=== PATIENT | male | born 1995 | race Caucasian/White ===

== ENCOUNTER 2016-11-22 20:42 | Inpatient (IN) | payer BC, OTHER ==
--- NOTE | 2016-11-22 21:20 | ED ---
Phoenix Brunner Benjamin, scribed for Eliot Castaneda MD on 11/22/16 at 2106 . Psychiatric Complaint - HPI Summary HPI Summary: 21yo male BIB police as 941. Per police, pt had a mental breakdown earlier today when his parents were arguing. Pt made suicidal and homicidal statements towards his parents. Pt has calmed down now and has been non violent and cooperative to police. Pt states his heart is broken and also states feeling depressed. Pt hasnt taken his psych meds for 3 weeks now. Denies any drug or alcohol use today. - History Of Current Complaint Chief Complaint: EDMentalHealth Time Seen by Provider: 11/22/16 20:52 Hx Obtained From: Patient, Other: - police Onset/Duration: Sudden Onset, Lasting Hours, Still Present Timing: Constant Severity Initially: Mild Severity Currently: Mild Character: Depressed Aggravating Factor(s): Recent Stress Alleviating Factor(s): Nothing Associated Signs And Symptoms: Positive: Negative Has Suicidal: Reports: Thoughts Has Homicidal: Reports: Thoughts - Allergies/Home Medications Allergies/Adverse Reactions: Allergies Allergy/AdvReac Type Severity Reaction Status Date / Time Perfume [Fragrance] Allergy SKIN Verified 02/28/15 06:30 SENSITIVITY PMH/Surg Hx/FS Hx/Imm Hx Endocrine/Hematology History: Denies: Hx Diabetes Respiratory History: Reports: Other Respiratory Problems/Disorders - OCCASIONAL NERVOUS COUGH, OR CLEARING OF THROAT-WHEN GETS NERVOUS GI History: Reports: Hx Gastroesophageal Reflux Disease - ACID REFLUX ON PEPCID COMPLETE Sensory History: Reports: Hx Contacts or Glasses - instructed glasses day of SURGERY Denies: Hx Hearing Aid Opthamlomology History: Reports: Hx Contacts or Glasses - instructed glasses day of SURGERY Neurological History: Reports: Other Neuro Impairments/Disorders - DOES HAVE SOME TIC- CLEARING HIS THROAT- PER MOM Psychiatric History: Reports: Hx Anxiety - BIPOLAR, OCD, ANXIETY - Surgical History Surgery Procedure, Year, and Place: 1999 frenulectomy [facility]. 2010 dental ext of[facility]. 2012 LASER REMOVED OF PLANTAR WART. 2014- PILONIDAL CYST- [facility] [place] Hx Anesthesia Reactions: Yes - THROAT SPASM UNDER ANESTHESIA-2014 - Immunization History Date of Tetanus Vaccine: unk Date of Influenza Vaccine: unk Infectious Disease History: No Infectious Disease History: Denies: Traveled Outside the [place] in Last 30 Days - Family History Known Family History: Positive: Other - psychiatric disorders - Social History Occupation: Employed Full-time Lives: With Family Alcohol Use: Occasionally Substance Use Type: Reports: None Smoking Status (MU): Never Smoked Tobacco Review of Systems Constitutional: Negative Eyes: Negative ENT: Negative Cardiovascular: Negative Respiratory: Negative Gastrointestinal: Negative Genitourinary: Negative Musculoskeletal: Negative Skin: Negative Neurological: Negative Positive: Depressed All Other Systems Reviewed And Are Negative: Yes Physical Exam Triage Information Reviewed: Yes Vital Signs On Initial Exam: Initial Vitals Temp Pulse Resp BP Pulse Ox 97.8 F 129 20 98/63 96 11/22/16 20:52 11/22/16 20:52 11/22/16 20:52 11/22/16 20:52 11/22/16 20:52 Vital Signs Reviewed: Yes Appearance: Positive: Well-Appearing, No Pain Distress, Well-Nourished Skin: Positive: Warm, Skin Color Reflects Adequate Perfusion, Dry Head/Face: Positive: Normal Head/Face Inspection Eyes: Positive: EOMI, NATALY ENT: Positive: Normal ENT inspection, Hearing grossly normal Neck: Positive: Supple, Nontender Respiratory/Lung Sounds: Positive: Clear to Auscultation, Breath Sounds Present Cardiovascular: Positive: RRR, Pulses are Symmetrical in both Upper and Lower Extremities Abdomen Description: Positive: Nontender, Soft Bowel Sounds: Positive: Present Musculoskeletal: Positive: Strength/ROM Intact Neurological: Positive: Sensory/Motor Intact, Alert, Oriented to Person Place, Time Psychiatric: Positive: Other - tearful - [place] Coma Scale Coma Scale Total: 15 Diagnostics - Vital Signs Vital Signs Temp Pulse Resp BP Pulse Ox 11/22/16 20:52 97.8 F 129 20 98/63 96 - Laboratory Lab Statement: Any lab studies that have been ordered have been reviewed, and results considered in the medical decision making process. Course/Dx - Course Course Of Treatment: Reviewed pts medication and allergy lists. Blood pressure noted. MHE PENDING AT SHIFT CHANGE. - Differential Dx/Clinical Impression Provider Diagnosis: Mental health problem Discharge - Discharge Plan Condition: Stable Disposition: OTHER Discharge Disposition Comment: . Referrals: Veto Galvan MD [Primary Care Provider] - The documentation as recorded by the Phoenix alba Benjamin accurately reflects the service I personally performed and the decisions made by me, Eliot Castaneda MD.
[2016-11-22 21:32] LABS: Urine Bilirubin Negative (Negative); Urine Glucose Negative (Negative); Urine Nitrite Negative (Negative)
[2016-11-22 21:41] LABS: Hematocrit 44 % (42-52); Hemoglobin 15.1 g/dl (14.0-18.0); Mean Corpuscular HGB Conc 35 g/dl (31-36); Mean Corpuscular Hemoglobin 30 pg (27-31); Mean Corpuscular Volume 85 fL (80-94); Mean Platelet Volume 9 um3 (7.4-10.4); Red Blood Count 5.11 10^6/ul (4.0-5.4); Red Cell Distribution Width 13 % (10.5-15); White Blood Count 8.8 10^3/ul (3.5-10.8)
[2016-11-22 21:54] LABS: Benzodiazepine Urine Screen None Detected (None Detect)
[2016-11-22 21:55] LABS: ALT 33 U/L (7-52); AST 44 U/L (13-39); Albumin 4.5 g/dL (3.2-5.2); Alkaline Phosphatase 105 U/L (34-104); Anion Gap 10 mmol/L (2-11); BUN/Creatinine Ratio 12.3 (8-20); Blood Urea Nitrogen 15 mg/dL (6-24); CO2 Carbon Dioxide 23 mmol/L (22-32); Calcium 9.7 mg/dL (8.6-10.3); Chloride 104 mmol/L (101-111); EGFR African American 96.4 (>60); Globulin 2.6 g/dL (2-4); Glucose 102 mg/dL (70-100); Potassium 3.9 mmol/L (3.5-5.0); Sodium 137 mmol/L (133-145); Total Protein 7.1 g/dL (6.4-8.9)
[2016-11-22 21:57] LABS: Acetaminophen < 15 mcg/mL; Alcohol < 10 mg/dL (<10); Salicylate < 2.50 mg/dL (<30)
[2016-11-22 22:04] LABS: TSH (Thyroid Stimulating Horm) 0.94 mcIU/mL (0.34-5.60)
[2016-11-23] MEDS ORDERED: Al Hydrox/Mg Hydrox/Simet LIQ* 30 ML UDC PO PRN (05:33)
[2016-11-23] MEDS ORDERED: Acetaminophen TAB* 325 MG PO PRN (05:33)
[2016-11-23] MEDS ORDERED: Haloperidol TAB* 5 MG PO PRN (05:33)
--- NOTE | 2016-11-23 07:16 | ED ---
Oziel Brunner Rebecca, scribed for Randy Chavez MD on 11/23/16 at 0258 . Progress - Progress Note Progress Note: Pt was signed out from Dr. Castaneda, pending disposition, awaiting MHE. Course/Dx - Course Course Of Treatment: Pt was signed out from Dr. Castaneda, pending disposition, awaiting MHE. Upon completion of MHE and consultation with Dr. Colón, it has been determined that the pt will be admitted to [facility] as an involuntary admission with Dx of psychoses. Pt is stable and she understands and agrees. - Diagnoses Provider Diagnoses: Psychoses The documentation as recorded by the Oziel alba Rebecca accurately reflects the service I personally performed and the decisions made by , Randy Chavez MD.
[2016-11-23] MEDS: Vitamin THERAPEUTIC TAB PO SCH (08:45)
[2016-11-23] MEDS: guanFACINE TAB* 1 MG PO SCH (20:36)
[2016-11-23] MEDS: OLANzapine TAB* 5 MG PO SCH (20:36)
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
[2016-11-24] MEDS: Vitamin THERAPEUTIC TAB PO SCH (10:29)
[2016-11-24] MEDS: OLANzapine TAB* 5 MG PO SCH (20:59)
[2016-11-24] MEDS: guanFACINE TAB* 1 MG PO SCH (20:59)
[2016-11-25] MEDS: Vitamin THERAPEUTIC TAB PO SCH (13:25)
--- NOTE | 2016-11-25 18:12 | PN ---
Subjective - Subjective Service Type: 74503 Hosp care 15 min low complexity Subjective: Martin was examined in the dinning room. He appeared happy and reports that he was doing just fine. Getting along with specific peers. Denies mood, thoughts or perceptual problems. Says he wasn't happy to see his parents who came to visit him. Got quiet when asked about his feeling towards then. Just shrugged his shoulders. Vehimently unwilling to consider any meds. Objective - Appearance Appearance: Obese Dysmorphic Features: No Hygiene: Normal Grooming: Well Kept - Behavior Psychomotor Activities: Normal Exhibits Abnormal Movement: No - Attitude and Relatedness Attitude and Relatedness: Well Related Eye Contact: Fair - Speech Quality: Unpressured Latencies: Normal Quantity: Appropriate - Mood Patient's Decription of Mood: "Good" - Affect Affect Consistent with: Euthymia - Thought Process Patient's Thought Process: Coherent, Goal Directed Thought Content: No Passive Wish, No Suicidal Planning, No Homicidal Ideation, No Paranoid Ideation - Sensorium Experiencing Hallucinations: No, Sensorium is Clear Type of Hallucinations: Visual: No, Auditory: No, Command: No - Level of Consciousness Level of Consciousness: Alert Orientation: Yes Intact, Yes Orientated to Time, Yes Orientated to Place, Yes Orientated to Person - Impulse Control Impulse Control: Tenuous - Insight and Judgement Insight and Judgement: Poor - Group Participation Particating in Group Activities: No - Medication Management Medication Management Adherence: No Assessment - Assessment Merits Inpatient Hospitalization: To Initiate Treatment Plan - Plan Treatment Plan: Name: MARTIN GERARDO Birthdate: 1995 [id number] Continued Medication Management: Consider Medication Medications: Current Medications Acetaminophen (Tylenol Tab*) 650 mg PO Q4H PRN PRN Reason: PAIN or TEMP > 101 F Al Hydrox/Mg Hydrox/Simethicone (Maalox Plus*) 30 ml PO Q4H PRN PRN Reason: INDIGESTION Guanfacine HCl (Tenex Tab*) 1 mg PO BEDTIME [facility] Last Admin: 11/24/16 20:59 Dose: Not Given Haloperidol (Haldol Tab*) 5 mg PO Q6H PRN PRN Reason: ANXIETY/INSOMNIA/AGITATION Multivitamins (Theragran Tab*) 1 tab PO DAILY [facility] Last Admin: 11/25/16 13:25 Dose: Not Given Olanzapine (Zyprexa Tab*) 17.5 mg PO BEDTIME [facility] Last Admin: 11/24/16 20:59 Dose: Not Given - Discharge Plan Discharge Plan: Outpatient [facility]
[2016-11-25] MEDS: OLANzapine TAB* 5 MG PO SCH (21:25)
[2016-11-25] MEDS: guanFACINE TAB* 1 MG PO SCH (21:25)
[2016-11-26] MEDS: Vitamin THERAPEUTIC TAB PO SCH (09:58)
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
[2016-11-26] MEDS: guanFACINE TAB* 1 MG PO SCH (21:27)
[2016-11-26] MEDS: OLANzapine TAB* 5 MG PO SCH (21:27)
[2016-11-27] MEDS: Vitamin THERAPEUTIC TAB PO SCH (11:35)
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
[2016-11-27] MEDS: OLANzapine TAB* 5 MG PO SCH (21:43)
[2016-11-27] MEDS: guanFACINE TAB* 1 MG PO SCH (21:43)
[2016-11-28] MEDS: Vitamin THERAPEUTIC TAB PO SCH (09:15)
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
--- NOTE | 2016-11-28 16:20 | PN ---
[facility]: Group Therapy Note - Service Type Service Type: [id number] Group Psychotherapy - Medication Education Group: Patient was attentive and participatory in group, and remained in good behavioral control. Patient expressed positive insights regarding relevant treatment interventions. Patient stated understanding of material discussed and had appropriate questions.
[2016-11-28] MEDS: OLANzapine TAB* 5 MG PO SCH (20:04)
[2016-11-28] MEDS: guanFACINE TAB* 1 MG PO SCH (20:04)
[2016-11-29] MEDS: Vitamin THERAPEUTIC TAB PO SCH (12:52)
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
[2016-11-29] MEDS: guanFACINE TAB* 1 MG PO SCH (20:18)
[2016-11-29] MEDS: OLANzapine TAB* 5 MG PO SCH (20:18)
[2016-11-30] MEDS: Vitamin THERAPEUTIC TAB PO SCH (08:08)
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
[2016-11-30] MEDS: OLANzapine TAB* 5 MG PO SCH (21:15)
[2016-11-30] MEDS: guanFACINE TAB* 1 MG PO SCH (21:15)
[2016-12-01] MEDS: Vitamin THERAPEUTIC TAB PO SCH (10:44)
[2016-12-01] MEDS: guanFACINE TAB* 1 MG PO SCH (20:59)
[2016-12-01] MEDS: OLANzapine TAB* 5 MG PO SCH (20:59)
[2016-12-02] MEDS: Vitamin THERAPEUTIC TAB PO SCH (09:34)
[2016-12-02] MEDS: guanFACINE TAB* 1 MG PO SCH (20:21)
[2016-12-02] MEDS: OLANzapine TAB* 5 MG PO SCH (20:21)
[2016-12-03] MEDS: Vitamin THERAPEUTIC TAB PO SCH (09:25)
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
[2016-12-03] MEDS: guanFACINE TAB* 1 MG PO SCH (19:58)
[2016-12-03] MEDS: OLANzapine TAB* 5 MG PO SCH (19:58)
[2016-12-04] MEDS: Vitamin THERAPEUTIC TAB PO SCH (08:13)
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
[2016-12-04] MEDS: guanFACINE TAB* 1 MG PO SCH (21:22)
[2016-12-04] MEDS: OLANzapine TAB* 5 MG PO SCH (21:22)
[2016-12-05 09:51] LABS: HDL Cholesterol 36.4 mg/dL
[2016-12-05] MEDS: Vitamin THERAPEUTIC TAB PO SCH (10:59)
[2016-12-05] MEDS: Paliperidone TAB* 3 MG TAB PO SCH (14:10)
[2016-12-05] MEDS: Lithium Carbonate ER* 450 MG TAB.ER PO SCH (14:10)
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
[2016-12-05] MEDS: OLANzapine TAB* 5 MG PO SCH (22:01)
[2016-12-05] MEDS: guanFACINE TAB* 1 MG PO SCH (22:01)
[2016-12-06] MEDS: Lithium Carbonate ER* 450 MG TAB.ER PO SCH (10:25)
[2016-12-06] MEDS: Paliperidone TAB* 3 MG TAB PO SCH (10:25)
[2016-12-06] MEDS: Vitamin THERAPEUTIC TAB PO SCH (10:26)
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
[2016-12-07] MEDS: Paliperidone TAB* 3 MG TAB PO SCH (08:07)
[2016-12-07] MEDS: Lithium Carbonate ER* 450 MG TAB.ER PO SCH (08:07)
[2016-12-07] MEDS: Vitamin THERAPEUTIC TAB PO SCH (08:08)
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
--- NOTE | 2016-12-07 14:00 | PN ---
[facility]: Group Therapy Note - Service Type Service Type: 08977 Group Psychotherapy - Cognitive Behavioral Group Therapy ( CBT):Patient presented in CBT programming as disorganized and disruptive in discussion and needed repeated redirection to attend to presented materials.
[2016-12-08] MEDS: Paliperidone TAB* 3 MG TAB PO SCH (09:57)
[2016-12-08] MEDS: Lithium Carbonate ER* 450 MG TAB.ER PO SCH (09:57)
[2016-12-08] MEDS: Vitamin THERAPEUTIC TAB PO SCH (09:58)
[2016-12-09] MEDS: Lithium Carbonate ER* 450 MG TAB.ER PO SCH (09:15)
[2016-12-09] MEDS: Paliperidone TAB* 3 MG TAB PO SCH (09:15)
[2016-12-09] MEDS: Vitamin THERAPEUTIC TAB PO SCH (09:15)
[2016-12-10] MEDS: Vitamin THERAPEUTIC TAB PO SCH (09:33)
[2016-12-10] MEDS: Lithium Carbonate ER* 450 MG TAB.ER PO SCH ×2 (09:34→20:30)
[2016-12-10] MEDS: Paliperidone TAB* 3 MG TAB PO SCH (09:34)
[2016-12-10] MEDS ORDERED: Paliperidone SUSTENNA* 234 MG/1.5 ML IM ONE (12:35)
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
[2016-12-10] MEDS: Aspirin TAB* 325 MG PO PRN (13:19)
[2016-12-11] MEDS: Lithium Carbonate ER* 450 MG TAB.ER PO SCH ×2 (08:11→20:27)
[2016-12-11] MEDS: Aspirin TAB* 325 MG PO PRN ×2 (08:12→20:27)
[2016-12-11] MEDS: Vitamin THERAPEUTIC TAB PO SCH (08:13)
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
[2016-12-12] MEDS: Vitamin THERAPEUTIC TAB PO SCH (08:40)
[2016-12-12] MEDS: Aspirin TAB* 325 MG PO PRN ×2 (08:40→20:23)
[2016-12-12] MEDS: Lithium Carbonate ER* 450 MG TAB.ER PO SCH ×2 (08:40→20:23)
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
[2016-12-13] MEDS: Lithium Carbonate ER* 450 MG TAB.ER PO SCH ×2 (09:27→20:15)
[2016-12-13] MEDS: Aspirin TAB* 325 MG PO PRN ×2 (09:27→20:15)
[2016-12-13] MEDS: Vitamin THERAPEUTIC TAB PO SCH (09:28)
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
[2016-12-14] MEDS ORDERED: Paliperidone SUSTENNA* 156 MG/1 ML IM ONE (09:00)
[2016-12-14] MEDS: Lithium Carbonate ER* 450 MG TAB.ER PO SCH (10:04)
[2016-12-14] MEDS: Vitamin THERAPEUTIC TAB PO SCH (10:04)
[2016-12-14] MEDS: Aspirin TAB* 325 MG PO PRN (10:23)
[2016-12-14 13:52] VITALS: BP 114/61
[2016-12-14] MEDS ORDERED: Lithium Carbonate ER* 450 MG TAB.ER PO SCH ×2 (21:00)
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
[2016-12-15] MEDS ORDERED: Lithium Carbonate ER* 450 MG TAB.ER PO SCH (09:00)
== END 2016-12-14 13:25 | disposition home or self-care (01) | DRG 885 ==
LOC: ED 20:42 → BSU 11-23 05:11
PROVIDERS: ADMIT Psychiatry & Neurology Psychiatry; ATTEND Psychiatry & Neurology Psychiatry
PROC: GZHZZZZ Group Psychotherapy (ICD-10-PCS; principal; 2016-11-28)
DX: F31.2 Bipolar disorder, current episode manic severe with psychotic features (principal); F79 Unspecified intellectual disabilities; E66.9 Obesity, unspecified; F41.9 Anxiety disorder, unspecified; R40.2412 Glasgow coma scale score 13-15, at arrival to emergency department; R45.6 Violent behavior; K21.9 Gastro-esophageal reflux disease without esophagitis; F29 Unspecified psychosis not due to a substance or known physiological condition; F42.9 Obsessive-compulsive disorder, unspecified; Z88.4 Allergy status to anesthetic agent; Z81.8 Family history of other mental and behavioral disorders; Z72.89 Other problems related to lifestyle; Z91.14 Patient's other noncompliance with medication regimen; Z91.048 Other nonmedicinal substance allergy status; Z68.26 Body mass index [BMI] 26.0-26.9, adult
CPT/HCPCS: 36415; 80053; 80061; 80178; 80307; 80320; 80329; 81003; 83036; 84443; 85025; 90853; 99222; 99231; 99238; A9270-GY; G0480; J2426

== ENCOUNTER 2017-06-15 18:46 | Emergency (ER) | payer OTHER ==
[2017-06-15 19:00] VITALS: BP 151/79
--- NOTE | 2017-06-15 19:14 | UC ---
Lower Extremity/Ankle HPI - HPI Summary HPI Summary: Pt presents with b/l LE edema. He is accompanied by his mother who provides most of the history as pt suffers from mental illness. Mom tells me that pt started Depakote early April - since that time has been complaining of LE discomfort and b/l knee pain. He saw his PCP 06/03 and was told he was gaining too much weight and this could be the cause of his symptoms. Today pt presents with significant LE b/l edema and pressure. Denies fever, chills, SOB, chest pain, abdominal pain, n/v/d/c, or recent illness. - History of Current Complaint Chief Complaint: UCLowerExtremity Stated Complaint: EDEMA/SWELLING LEGS (BOTH) Time Seen by Provider: 06/15/17 19:14 Hx Obtained From: Patient, Family/Nutrition And Dietetics Instructor Severity Initially: Mild Severity Currently: Mild Pain Intensity: 2 Pain Scale Used: 0-10 Numeric Aggravating Factor(s): Standing, Ambulation Able to Bear Weight: Yes - Allergies/Home Medications Allergies/Adverse Reactions: Allergies Allergy/AdvReac Type Severity Reaction Status Date / Time No Known Allergies Allergy Verified 06/15/17 19:01 Home Medications: Home Medications Divalproex ER TAB(*) [Depakote ER TAB(*)] 750 mg PO DAILY 06/15/17 [History Confirmed 06/15/17] PMH/Surg Hx/FS Hx/Imm Hx Psychological History: Anxiety, Depression, Bipolar Disorder - Surgical History Surgical History: Yes Surgery Procedure, Year, and Place: 1999 frenulectomy [facility] – [place]. 2010 dental ext ofc. 2012 LASER REMOVED OF PLANTAR WART. 2013- [facility]ILONIDAL CYST- [facility] – [place] - Family History Known Family History: Positive: Other - psychiatric disorders - Social History Lives: Alone Alcohol Use: None Substance Use Type: None Smoking Status (MU): Never Smoked Tobacco Have You Smoked in the Last Year: No - Immunization History Most Recent Influenza Vaccination: unknown Most Recent Pneumonia Vaccination: never Review of Systems Constitutional: Negative Skin: Negative Respiratory: Negative Cardiovascular: Negative Gastrointestinal: Negative Genitourinary: Negative Neurovascular: Negative Musculoskeletal: Edema - b/l LEs Neurological: Negative Psychological: Negative All Other Systems Reviewed And Are Negative: Yes Physical Exam Triage Information Reviewed: Yes Appearance: Well-Appearing, No Pain Distress, Obese Vital Signs: Initial Vital Signs Temp 98.9 F 06/15/17 18:57 Pulse 84 06/15/17 18:57 Resp 18 06/15/17 18:57 BP 151/79 06/15/17 18:57 Pulse Ox 100 06/15/17 18:57 Vital Signs Reviewed: Yes Neck: Positive: Supple, Nontender, No Lymphadenopathy Respiratory: Positive: Lungs clear, Normal breath sounds, No respiratory distress, No accessory muscle use Cardiovascular: Positive: RRR, No Murmur, Pulses Normal - DP and TP b/l LEs Abdomen Description: Positive: Nontender, No Organomegaly, Soft. Negative: CVA Tenderness (R), CVA Tenderness (L), Distended, Guarding Bowel Sounds: Positive: Present Musculoskeletal: Positive: Strength Intact - B/L LEs, ROM Intact - B/L LEs, Edema @ - b/l LEs extending up to inferior knee 3+ Neurological: Positive: Alert, Other: - Sensations intact b/l LEs Psychological: Positive: Age Appropriate Behavior Skin: Positive: Other - Mild erythema to b/l feet. No open sores, lacerations, or skin breakdown. Lower Extremity Course/Dx - Course Course Of Treatment: EKg NSR 77bpm No ST elevation as read by Dr. Carlton. He has also been taking naproxen for his knee pain. I have advised that he stop taking naproxen and decrease the sodium in his diet. Advised mom to call his PCP on saturday for potential medication adjustments as I suspect his LE edema is due to his depakote. - Differential Dx/Diagnosis Provider Diagnoses: B/L LE edema Discharge - Sign-Out/Discharge Documenting (check all that apply): Discharge - Discharge Plan Condition: Stable Disposition: HOME Patient Education Materials: Valproic Acid (By mouth), Leg Edema (ED) Referrals: Sagar Sanchez MD [Primary Care Provider] - Additional Instructions: If you develop a fever, shortness of breath, chest pain, new or worsening symptoms - please call your PCP or go to the ED. 1) Please call your PCP as soon as possible to discuss your leg swelling and potential dose change in your medications. - Billing Disposition and Condition Condition: STABLE Disposition: HOME
== END 2017-06-15 20:09 | disposition home or self-care (01) ==
LOC: UCEAST 18:46
DX: R60.0 Localized edema (principal); M25.562 Pain in left knee; M25.561 Pain in right knee; F41.9 Anxiety disorder, unspecified; F31.89 Other bipolar disorder
CPT/HCPCS: 93005; 99211; G0463